=== PATIENT | female | born 1985 | race Caucasian/White ===

== ENCOUNTER 2017-03-15 12:18 | Emergency (ER) | payer OTHER ==
[2017-03-15 12:21] VITALS: BP 127/82
--- NOTE | 2017-03-15 12:42 | DR.GENAD ---
HPI - PCP Primary Care Physician: TIMBO - HPI Comment HPI Comment: WORSE TODAY. NO FEVER. - Complaint/Symptoms Chief Complaint Doctors Comments: N/V/D AND HEADACHE TIMES ONE DAY. Chief Complaint:: N/V/D, ABDOMINAL PAIN, HEADACHE - Nurses notes reviewed Nurses Notes Review: Yes - Source History Provided: Patient - Mode of Arrival Mode of Arrival: Ambulatory - Timing Onset of Chief Complaint: 03/14/17 Came on: Suddenly - Duration Duration: Constant Duration: Days - Severity Severity: Moderate PMH - PMH Past Medical History: No Past Surgical History: Yes Surgical History: Cholecystectomy, Other Past Surgical History Comment: BREAST REDUCTION - Family History History of Family Medical Conditions: Yes Family Medical History: Cancer, Hypertension - Social History Does patient currently use any type of tobacco product: No Have you used tobacco products in the last 12 months: No Type of Tobacco Use: None Does any household member use tobacco: No Alcohol Use: Occasionally Do you use any recreational Drugs:: No Lives With: Spouse Lives Where: Home - infectious screening In the last 2 months have you had wt loss of >10#?: NO Have you had fever, night sweats or hemotysis?: No Have you traveled outside the country in the last 6 months?: No Isolation: Standard ROS - Review of Systems Constitutional: No Symptoms Reported Eyes: No Symptoms Reported ENTM: No Symptoms Reported Respiratoy: No Symptoms Reported Cardiovascular: No Symptoms Reported Gastrointestinal/Abdominal: Abdominal Pain, Diarrhea, Nausea, Vomiting Genitourinary: No Symptoms Reported Neurological: Headache Musculoskeletal: No Symptoms Reported Integumentary: No Symptoms Reported Hematologic/Lymphatic: No Symptoms Reported Endocrine: No Symptoms Reported All Other Systems: Reviewed and Negative PE - Vital Signs Vitals: Temperature 97.8 F Pulse Rate 80 Respiratory Rate 17 Blood Pressure 127/82 O2 Sat by Pulse Oximetry 99 - General Limitations: No Limitations General Appearance: Alert - Head Head Exam: Normal Inspection - Eyes Eye exam: Normal Appearance - ENT ENT Exam: Normal External Ear Exam External Ear Exam: Normal External Inspection TM/Canal Exam: Bilateral Normal Nose Exam: Normal Nose Exam Mouth Exam: Normal Inspection Throat Exam: Normal Inspection - Neck Neck Exam: Trachea Midline - Chest Chest Inspection: Symmetric Chest Wall Rise - Respiratory Respiratory Exam: Normal Lung Sounds Bilat Respiratory Exam: Bilateral Clear to Auscultation - Cardiovascular Cardiovascular Exam: Regular Rate, Normal Rhythm, Normal Heart Sounds - Abdominal Exam Abdominal Exam: Normal Bowel Sounds, Soft. negative: Tenderness - Extremities Extremities Exam: Normal Inspection - Back Back Exam: Normal Inspection - Neurologic Neurological Exam: Oriented X3 - Psychiatric Psychiatric Exam: Normal Affect - Skin Skin Exam: Normal Color MDM - Differential Diagnosis Differential Diagnosis: GASTROENTERITIS, ABDOMIAL PAIN, BOWEL OBTRUCTION Course - Treatment Treatment: SEE ORDER - Education/Counseling Education/Counseling: Patient, Education Educated On: Diagnosis, Needs for Follow Up ROR - Labs Reviewed Laboratory Results Reviewed?: Yes Result Diagrams: 03/15/17 13:10 03/15/17 13:10 Laboratory: WBC 19.0 X10^3/uL (3.6-10.0) H 03/15/17 13:10 RBC 5.16 X10^6/uL (3.5-5.4) 03/15/17 13:10 Hgb 14.9 g/dL (12.0-16.0) 03/15/17 13:10 Hct 44.4 % (36.0-47.0) 03/15/17 13:10 MCV 85.9 fL (80.0-100.0) 03/15/17 13:10 MCH 28.8 pg (27.0-34.0) 03/15/17 13:10 MCHC 33.5 g/dL (33.0-35.0) 03/15/17 13:10 RDW 12.8 % (11.6-16.5) 03/15/17 13:10 Plt Count 311 X10^3/uL (150.0-450.0) 03/15/17 13:10 Plt Count Comment Adequate (ADEQUATE) 03/15/17 13:10 MPV 7.7 fL (7.4-11.0) 03/15/17 13:10 Neut % 91.1 % (42.0-75.0) H 03/15/17 13:10 Lymph % 5.7 % (21.0-51.0) L 03/15/17 13:10 Luna % 2.4 % (0.0-13.0) 03/15/17 13:10 Eos % 0.3 % (0.9-2.9) L 03/15/17 13:10 Baso % 0.5 % (0.2-1.0) 03/15/17 13:10 Neut # 17.3 x10^3/uL (2.2-4.8) H 03/15/17 13:10 Lymph # 1.1 X10^3/uL (1.3-2.9) L 03/15/17 13:10 Luna # 0.4 x10^3/uL (0.3-0.8) 03/15/17 13:10 Eos # 0.1 x10^3/uL (0.0-0.2) 03/15/17 13:10 Baso # 0.1 X10^3/uL (0.0-0.1) 03/15/17 13:10 Absolute Nucleated RBC 0.0 /100WBC 03/15/17 13:10 Total Counted 100 03/15/17 13:10 Neutrophils % (Manual) 89 % (39-76) H 03/15/17 13:10 Band Neutrophils % 2 % (0-10) 03/15/17 13:10 Lymphocytes % (Manual) 9 % (13-43) L 03/15/17 13:10 Plt Morphology Comment Normal (NORMAL) 03/15/17 13:10 RBC Morphology Normal (NORMAL) 03/15/17 13:10 Sodium 142 mmol/L (136-145) 03/15/17 13:10 Corrected Sodium 142 mmol/L (136-145) 03/15/17 13:10 Potassium 4.3 mmol/L (3.5-5.1) 03/15/17 13:10 Chloride 106 mmol/L (98-107) 03/15/17 13:10 Carbon Dioxide 27.9 mmol/L (21-32) 03/15/17 13:10 BUN 14 mg/dL (7-18) 03/15/17 13:10 Creatinine 0.88 mg/dL (0.55-1.02) 03/15/17 13:10 Est GFR (MDRD) Af Amer > 60 (>60) 03/15/17 13:10 Est GFR (MDRD) Non-Af > 60 (>60) 03/15/17 13:10 Glucose 113 mg/dL (65-99) H 03/15/17 13:10 Calcium 9.0 mg/dL (8.5-10.1) 03/15/17 13:10 Corrected Calcium TNP 03/15/17 13:10 Total Bilirubin 0.60 mg/dL (0.2-1.0) 03/15/17 13:10 AST 16 Units/L (15-37) 03/15/17 13:10 ALT 26 Units/L (12-78) 03/15/17 13:10 Alkaline Phosphatase 73 Units/L (46-116) 03/15/17 13:10 Total Protein 8.0 g/dL (6.4-8.2) 03/15/17 13:10 Albumin 3.8 g/dL (3.4-5.0) 03/15/17 13:10 Globulin 4.2 g/dL (2.5-4.5) 03/15/17 13:10 Albumin/Globulin Ratio 0.9 Ratio (1.1-2.1) L 03/15/17 13:10 Amylase 33 Units/L (25-115) 03/15/17 13:10 Lipase 173 Units/L (73-393) 03/15/17 13:10 HCG, Qual Negative <10 mIU/mL 03/15/17 13:10 Specimen Type Clean catch urine 03/15/17 15:22 Urine Color Yellow (YELLOW) 03/15/17 15:22 Urine Appearance Clear (CLEAR) 03/15/17 15:22 Urine pH 7.0 (5.0 - 8.0) 03/15/17 15:22 Ur Specific [place] 1.005 (1.000-1.030) 03/15/17 15:22 Urine Protein Negative (NEGATIVE) 03/15/17 15:22 Urine Glucose (UA) Negative (NEGATIVE) 03/15/17 15:22 Urine Ketones Negative (NEGATIVE) 03/15/17 15:22 Urine Occult Blood Negative (NEGATIVE) 03/15/17 15:22 Urine Nitrite Negative (NEGATIVE) 03/15/17 15:22 Urine Bilirubin Negative (NEGATIVE) 03/15/17 15:22 Urine Urobilinogen Normal (NORMAL) 03/15/17 15:22 Ur Leukocyte Esterase Negative (NEGATIVE) 03/15/17 15:22 Urine RBC None seen /HPF (NEGATIVE) 03/15/17 15:22 Urine WBC 0-1 /HPF (NEGATIVE) 03/15/17 15:22 Ur Squamous Epith Cells Few /HPF (NEGATIVE) 03/15/17 15:22 Urine Bacteria Trace /HPF (NEGATIVE) 03/15/17 15:22 Ur Culture Indicated? No/not indicated 03/15/17 15:22 - XRAY XRAY Interpreted by: Radiologist XRAY Findings: REPORT DISCUSS WITH PATIENT. - Diagnosis Discharge Problem: Gastroenteritis, Dehydration Abdominal pain Qualifiers: Abdominal location: generalized Qualified Code(s): R10.84 - Generalized abdominal pain - Discharge Plan Disposition: 01 HOME, SELF-CARE Condition: Stable Prescriptions: Dicyclomine HCl [Bentyl tab 20 mg] 20 mg PO TID #15 tab Diphenoxylate/Atropine [Lomotil] 1 tab PO TID PRN #15 tab PRN Reason: Ondansetron HCl [Zofran Tab 4 mg] 4 mg PO Q8H PRN #15 tab PRN Reason: Nausea/Vomiting - Follow ups/Referrals Follow ups/Referrals: NEHA IZQUIERDO V [Primary Care Provider] - 3 days - Instructions Instructions: Abdominal Pain, Adult, [id number], Dehydration, Elderly, Viral Gastroenteritis, Adult, [id number] Additional Instructions: RETURN TO ED IF WORSE.
[2017-03-15] MEDS ORDERED: ZOFRAN INJ 4 MG VIAL IVP ONE (12:47)
[2017-03-15] MEDS ORDERED: NS 1000 ML 1,000 ML IV ONE (12:47)
[2017-03-15] MEDS ORDERED: MORPHINE SULFATE INJ 4 MG IVP ONE (12:47)
[2017-03-15] MEDS ORDERED: MORPHINE SULFATE INJ 4 MG ONE (13:05)
[2017-03-15] MEDS ORDERED: NS 1000 ML 1,000 ML ONE (13:05)
[2017-03-15] MEDS ORDERED: ZOFRAN INJ 4 MG VIAL ONE (13:05)
[2017-03-15 13:23] LABS: BASOPHILS # (AUTO) 0.1 X10^3/uL (0.0-0.1); BASOPHILS % (AUTO) 0.5 % (0.2-1.0); EOSINOPHILS # (AUTO) 0.1 x10^3/uL (0.0-0.2); EOSINOPHILS % (AUTO) 0.3 % (0.9-2.9); HEMATOCRIT 44.4 % (36.0-47.0); HEMOGLOBIN 14.9 g/dL (12.0-16.0); LYMPHOCYTES # (AUTO) 1.1 X10^3/uL (1.3-2.9); LYMPHOCYTES % (AUTO) 5.7 % (21.0-51.0); MEAN CORPUSCULAR HEMOGLOBIN 28.8 pg (27.0-34.0); MEAN CORPUSCULAR HGB CONC 33.5 g/dL (33.0-35.0); MEAN CORPUSCULAR VOLUME 85.9 fL (80.0-100.0); MEAN PLATELET VOLUME 7.7 fL (7.4-11.0); MONOCYTES # (AUTO) 0.4 x10^3/uL (0.3-0.8); MONOCYTES % (AUTO) 2.4 % (0.0-13.0); NEUTROPHILS # (AUTO) 17.3 x10^3/uL (2.2-4.8); NEUTROPHILS % (AUTO) 91.1 % (42.0-75.0); PLATELET COUNT 311 X10^3/uL (150.0-450.0); RED BLOOD COUNT 5.16 X10^6/uL (3.5-5.4); RED CELL DISTRIBUTION WIDTH 12.8 % (11.6-16.5)
[2017-03-15 13:33] LABS: ALANINE AMINOTRANSFERASE 26 Units/L (12-78); ALBUMIN 3.8 g/dL (3.4-5.0); ALKALINE PHOSPHATASE 73 Units/L (46-116); AMYLASE 33 Units/L (25-115); ASPARTATE AMINO TRANSFERASE 16 Units/L (15-37); BLOOD UREA NITROGEN 14 mg/dL (7-18); CARBON DIOXIDE 27.9 mmol/L (21-32); CHLORIDE 106 mmol/L (98-107); COR NA(FOR HYPERGLY) 142 mmol/L (136-145); CREATININE 0.88 mg/dL (0.55-1.02); GLUCOSE 113 mg/dL (65-99); LIPASE 173 Units/L (73-393); SODIUM 142 mmol/L (136-145); eGFR BLACK RACES > 60 (>60); eGFR NON BLACK RACES > 60 (>60)
[2017-03-15 13:34] LABS: SERUM PREGNANCY TEST, QUAL NEGATIVE <10 mIU/mL
[2017-03-15 13:40] LABS: BAND NEUTROPHILS % 2 % (0-10); PLATELET MORPHOLOGY COMMENT NORMAL (NORMAL)
[2017-03-15 15:27] LABS: BILIRUBIN,URINE NEGATIVE (NEGATIVE); BLOOD/HEMOGLOBIN,URINE NEGATIVE (NEGATIVE); GLUCOSE, URINE NEGATIVE (NEGATIVE); KETONES,URINE NEGATIVE (NEGATIVE); LEUKOCYTE ESTERASE ,URINE NEGATIVE (NEGATIVE); NITRITES,URINE NEGATIVE (NEGATIVE); PROTEIN,URINE NEGATIVE (NEGATIVE); UROBILINOGEN,URINE NORMAL (NORMAL)
[2017-03-15 15:46] LABS: APPEARANCE,URINE CLEAR (CLEAR); BACTERIA,URINE TRACE /HPF (NEGATIVE); COLOR,URINE YELLOW (YELLOW); RBC,URINE NONE SEEN /HPF (NEGATIVE); SQUAMOUS EPITHELIAL CELL,UR FEW /HPF (NEGATIVE)
--- NOTE | 2017-03-15 15:50 | RAD ---
HISTORY: Abdominal pain Study: Acute abdominal series Comparison: None Findings: The trachea is midline. The cardiac silhouette is unremarkable. The lungs are clear without focal infiltrate or effusion. The bony thorax is unremarkable. Flat plate and upright evaluation of the abdomen demonstrates a normal bowel gas pattern. No pneumop eritoneum is identified.. No pathological soft tissue mass or calcification can be observed. The b kaz structures are grossly intact. IMPRESSION: 1. No acute cardiopulmonary disease. 2. No evidence for acute abdominal pathology identified. Reported By:
== END 2017-03-15 16:42 | disposition home or self-care (01) ==
LOC: ER 12:30
DX: K52.89 Other specified noninfective gastroenteritis and colitis (principal); E86.0 Dehydration; R10.84 Generalized abdominal pain
CPT/HCPCS: 36415; 74022; 80053; 81001; 82150; 83690; 84703; 85025; 96365; 96374; 96375; 99283; A4222; J2270; J2405